=== PATIENT | male | born 1990 | race Caucasian/White ===

== ENCOUNTER 2016-04-02 17:17 | Emergency (ER) | payer SELFPAY ==
[2016-04-02 18:21] VITALS: BP 144/77; PULSE 83; RESP 18; TEMP 99.2
--- NOTE | 2016-04-02 20:23 | ED ---
General Adult HPI - General Chief complaint: Back Pain/Injury Stated complaint: Fall Time Seen by Provider: 04/02/16 19:32 Source: patient, RN notes reviewed Mode of arrival: ambulatory Limitations: no limitations - History of Present Illness Initial comments: This is a 25yo male who presents with neck and back pain after slipping and falling in his [place] at 8 AM this morning. Patient states he slipped on the ice. Patient denies hitting his head or loss of consciousness. Patient states he walked from his barn to his house after the fall, but has since been laying on the couch due to back pain. Patient admits to a throbbing pain in the middle of his back. Patient complains of some mild shortness of breath. Patient denies any loss of bowel or bladder function or loss of sensation to the saddle area. Patient admits to some mild radicular pain down bilateral extremities but denies any numbness or tingling. Patient denies any numbness or tingling or weakness in the bilateral upper extremities. Patient denies any headache, nausea, diplopia or blurred vision. Patient denies being on any medication. Patient denies any recent fever, chills, chest pain, abdominal pain , nausea/vomiting/diarrhea, hematuria, or visual changes, or any other complaints. - Related Data Home Medications Medication Instructions Recorded Confirmed Methocarbamol [Robaxin] 750 mg PO TID PRN 04/02/16 04/02/16 Naproxen 500 mg PO BID PRN 04/02/16 04/02/16 traMADol HCL [Ultram] 50 mg PO Q6HR PRN 04/02/16 04/02/16 Allergies Allergy/AdvReac Type Severity Reaction Status Date / Time No Known Allergies Allergy Verified 04/02/16 19:43 Review of Systems ROS Statement: Those systems with pertinent positive or pertinent negative responses have been documented in the HPI. ROS Other: All systems not noted in ROS Statement are negative. Past Medical History Past Medical History: Asthma History of Any Multi-Drug Resistant Organisms: None Reported Past Surgical History: No Surgical Hx Reported Past Psychological History: No Psychological Hx Reported Smoking Status: Former smoker Past Alcohol Use History: Occasional Past Drug Use History: None Reported General Exam - General Exam Comments Initial Comments: General: The patient is awake and alert, in no distress, and does not appear acutely ill. Eye: Pupils are equal, round and reactive to light, extra-ocular movements are intact. No nystagmus. There is normal conjunctiva bilaterally. No signs of icterus. Mouth and throat: There are moist mucous membranes and no oral lesions. Neck: There is cervical midline tenderness present. Patient is in a c-collar. Cardiovascular: There is a regular rate and rhythm. No murmur, rub or gallop is appreciated. Respiratory: Lungs are clear to auscultation, respirations are non-labored, breath sounds are equal. No wheezes, stridor, rales, or rhonchi. Gastrointestinal: Mild tenderness in the epigastric area that this correlates with the area of back pain. Soft, non-distended abdomen without masses or organomegaly noted. There is no rebound or guarding present. No CVA tenderness. Bowel sounds are unremarkable. Musculoskeletal: There is tenderness to palpation along the cervical midline, to the thoracic spine and to the lumbar paraspinal muscles on the right side. Normal ROM, Strength 5/5. Sensation intact. Radial and posterior tibial Pulses equal bilaterally 2+. Capillary refill is normal less than 2 seconds. Negative straight leg raise bilaterally. Neurological: A&O x 3. CN II-XII intact, There are no obvious motor or sensory deficits. Coordination appears grossly intact. Speech is normal. Skin: Skin is warm and dry and no rashes or lesions are noted. Psychiatric: Cooperative, appropriate mood & affect, normal judgment. Limitations: no limitations Course Vital Signs 04/02/16 18:19 Temperature 99.2 F Pulse Rate 83 Respiratory 18 Rate Blood Pressure 144/77 O2 Sat by Pulse 98 Oximetry Medical Decision Making - Medical Decision Making This is a 25 male who presents with back pain after a slip and fall this morning. On physical exam patient is neurologically intact. There is tenderness to palpation along the cervical midline, to the thoracic spine and to the lumbar paraspinal muscles on the right side. Normal ROM, Strength 5/5. Sensation intact. Radial and posterior tibial Pulses equal bilaterally 2+. Capillary refill is normal less than [address] of the cervical spine was done and reviewed showing:No evidence for fracture or subluxation of the cervical spine. Patient was then cleared of the cervical collar. X-rays of the thoracic and lumbar spine was done showing:X-ray thoracic spine: No acute fracture or dislocation is seen in the thoracic spine. X-ray lumbar spine: No acute fracture or dislocation is seen in the lumbar spine. Chest x-ray: No acute cardiopulmonary process. Reports read by Dr. Ruiz. Imaging was reviewed and discussed with patient. Patient was offered pain medication in the EC today but refused. Discussed warm compresses or ice to the areas of pain. Discussed [id number] Tylenol and Motrin/Aleve as needed for any pain. Discussed return parameters. Patient was able to stand and walk in the EC today. Discussed that patient should follow up with PCP in one to 2 days or return to the EC for any worsening symptoms or for any further concerns. Patient was receptive to this plan and patient will be discharged home. Disposition Clinical Impression: Mechanical back pain, Fall Disposition: HOME SELF-CARE Condition: Good Instructions: Back Pain (ED) Additional Instructions: Please ice or use heat to the areas. May use [id number] Tylenol or Motrin /Tylenol for any pain. Please use medication as discussed. Please follow-up with family doctor in the next 2 days of symptoms have not improved. Please return to emergency room if the symptoms increase or worsen or for any other concerns. Referrals: None,Stated [Primary Care Provider] - 1-2 days Time of Disposition: 22:11
--- NOTE | 2016-04-02 21:17 | CT ---
EXAMINATION TYPE: CT cervical spine wo con DATE OF EXAM: 04/02/2016 9:09 PM COMPARISON: NONE HISTORY: Neck pain post fall CT DLP: [address] of the cervical spine was performed with bone and soft tissue window settings submitted . Coronal and sagittal reconstruction is obtained. There is normal alignment and prevertebral soft tissues. I do not see evidence for fracture or subluxation. No significant degenerative changes are present. The lung apices are clear IMPRESSION: No evidence for fracture or subluxation of the cervical spine.
--- NOTE | 2016-04-02 21:47 | XR ---
EXAMINATION TYPE: XR chest 2V DATE OF EXAM: 04/02/2016 9:40 PM COMPARISON: NONE HISTORY: Chest pain TECHNIQUE: Frontal and lateral views of the chest are obtained. FINDINGS: There is no focal air space opacity. No evidence for pnuemothorax.No pleural effusion. The cardiac silhouette size is within normal limits. The osseous structures are grossly intact. IMPRESSION: 1. No acute cardiopulmonary process.
--- NOTE | 2016-04-02 21:48 | XR ---
EXAMINATION TYPE: XR lumbar spine 2 or 3V DATE OF EXAM: 04/02/2016 9:41 PM CLINICAL HISTORY: pain TECHNIQUE: Three views of the lumbar spine are submitted. COMPARISON: None. FINDINGS: There are 5 lumbar type vertebral bodies identified. The lumbar spine shows satisfactory alignment w ithout evidence of acute fracture or dislocation. Vertebral body heights are within normal limits. Disc spaces are within normal limits. The overlying soft tissue appears unremarkable. IMPRESSION: No acute fracture or dislocation is seen in the lumbar spine. ICD 10 NO FRACTURE, INITIAL EVALUATION
--- NOTE | 2016-04-02 21:49 | XR ---
EXAMINATION TYPE: XR thoracic spine complete DATE OF EXAM: 04/02/2016 9:41 PM CLINICAL HISTORY: pain TECHNIQUE: Frontal, lateral, and swimmer's view of thoracic spine are obtained. COMPARISON: None. FINDINGS: Thoracic spine show satisfactory alignment without evidence of acute fracture or dislocatio n. Vertebral body heights are preserved. Disc spaces are well preserved. Visualized ribs are unrem arkable. IMPRESSION: No acute fracture or dislocation is seen in the thoracic spine. ICD 10 NO FRACTURE, INIT IAL EVALUATION
== END 2016-04-02 22:33 | disposition home or self-care (01) ==
LOC: EC 17:17
DX: M54.9 Dorsalgia, unspecified (principal); Z87.891 Personal history of nicotine dependence; W00.0XXA Fall on same level due to ice and snow, initial encounter; Y92.71 Barn as the place of occurrence of the external cause; R06.02 Shortness of breath
CPT/HCPCS: 71020; 72072; 72100; 72125; 99284

== ENCOUNTER 2017-06-12 18:10 | Emergency (ER) | payer BC ==
[2017-06-12] MEDS ORDERED: MAG HYDROX/AL HYDROX/SIMETH 30 ML, HYOSCYAMINE ELIXIR 10 ML, CIMETIDINE HCL 300 MG, LID... PO STA ×4 (18:54)
[2017-06-12] MEDS ORDERED: SODIUM CHLORIDE 0.9% 1,000 ML IV STA (18:54)
[2017-06-12 19:30] LABS: Basophils % (A) 0 %; Eosinophils # (A) 0.4 k/uL (0-0.7); Eosinophils % (A) 7 %; HCT 43.5 % (39.0-53.0); HGB 15.5 gm/dL (13.0-17.5); Lymphocytes # (A) 1.2 k/uL (1.0-4.8); Lymphocytes % (A) 23 %; MCH 32.5 pg (25.0-35.0); MCHC 35.7 g/dL (31.0-37.0); MCV 91.1 fL (80.0-100.0); Mean Platelet Volume 6.9; Monocytes # (A) 0.3 k/uL (0-1.0); Monocytes % (A) 5 %; Neutrophils # (A) 3.3 k/uL (1.3-7.7); Neutrophils % (A) 62 %; Platelet Count 232 k/uL (150-450); RBC 4.78 m/uL (4.30-5.90); RDW 12.7 % (11.5-15.5); WBC 5.3 k/uL (3.8-10.6)
--- NOTE | 2017-06-12 19:39 | ED ---
Abdominal Pain HPI - General Chief Complaint: Abdominal Pain Stated Complaint: ABDOMINAL PAIN, NAUSEA Time Seen by Provider: 06/12/17 18:45 Source: patient, RN notes reviewed Mode of arrival: ambulatory Limitations: no limitations - History of Present Illness Initial Comments: This is a 26-year-old male who presents to the emergency department with chief complaint of abdominal pain and diarrhea. Patient states that Thursday he returned from a trip to [place]. He states that he developed left-sided abdominal pain and has had watery diarrhea ever since. He states that he has not had a normal bowel movement since Thursday. He states that a couple hours after eating he developed left-sided abdominal pain and then approximately 15 minutes later he has watery diarrhea. He does admit to some nausea but denies vomiting. He states that he does have a coworker with similar symptoms. Denies fevers or chills. Denies urinary symptoms such as dysuria, hematuria or increased frequency. - Related Data Home Medications Medication Instructions Recorded Confirmed Elviteg/Cob/Emtri/Tenof Alafen 1 tab PO HS 06/12/17 06/12/17 [Genvoya Tablet] Sulfamethox-Tmp 800-160Mg [Bactrim 1 tab PO HS 06/12/17 06/12/17 DS 800-160 mg] Allergies Allergy/AdvReac Type Severity Reaction Status Date / Time No Known Allergies Allergy Verified 06/12/17 18:49 Review of Systems ROS Statement: Those systems with pertinent positive or pertinent negative responses have been documented in the HPI. ROS Other: All systems not noted in ROS Statement are negative. Past Medical History Past Medical History: Asthma History of Any Multi-Drug Resistant Organisms: None Reported Past Surgical History: No Surgical Hx Reported Past Psychological History: No Psychological Hx Reported Smoking Status: Former smoker Past Alcohol Use History: Occasional Past Drug Use History: None Reported General Exam - General Exam Comments Initial Comments: General: Awake and alert, well-developed; in no apparent distress. HEENT: Head atraumatic, normocephalic. Pupils are equal, round and reactive to light. Extraocular movements intact. Oropharynx moist without erythema or exudate. Neck: Supple. Normal ROM. Cardiovascular: Regular rate and rhythm. No murmurs, rubs or gallops. Chest symmetrical. Respiratory: Lungs clear to auscultation bilaterally. No wheezes, rales or rhonchi. Normal respiratory effort with no use of accessory muscles. Abdomen: Soft, non-distended. Tenderness on palpation of epigastric region and left upper quadrant. No rigidity, rebound or guarding. Normal bowel sounds in all 4 quadrants. Musculoskeletal: Normal ROM, no tenderness bilateral upper and lower extremities. Ambulating normally. Skin: [place], warm and dry without rashes or lesions. Neurological: Alert and oriented x3. CN II-XII grossly intact. Speech is fluent and answers are appropriate. No focal neuro deficits. Psychiatric: Normal mood and affect. No overt signs of depression or anxiety noted. Limitations: no limitations Course Vital Signs 06/12/17 18:16 Temperature 97.2 F L Pulse Rate 71 Respiratory 18 Rate Blood Pressure 136/76 O2 Sat by Pulse 98 Oximetry Medical Decision Making - Medical Decision Making This is a 26-year-old male who presents to the emergency department with chief complaint of abdominal pain and diarrhea. Patient has mild tenderness on palpation of the epigastric region. He complains of watery diarrhea after eating meals since Thursday. Denies any fevers or chills. Patient's vital signs are stable and he is afebrile. CBC, CMP and UA are unremarkable. X-ray KUB reveals a nonacute abdomen. Patient was given a GI cocktail and states he feels a 40-50% improvement in his symptoms. Patient is in no acute distress and will be discharged home. Likely suffering from gastroenteritis. Return parameters were discussed. Patient is in agreement plan and voices understanding. All questions were answered. - Lab Data Result diagrams: 06/12/17 19:19 06/12/17 19:19 Lab Results 06/12/17 06/12/17 Range/Units 19:19 19:19 WBC 5.3 (3.8-10.6) k/uL RBC 4.78 (4.30-5.90) m/uL Hgb 15.5 (13.0-17.5) gm/dL Hct 43.5 (39.0-53.0) % MCV 91.1 (80.0-100.0) fL MCH 32.5 (25.0-35.0) pg MCHC 35.7 (31.0-37.0) g/dL RDW 12.7 (11.5-15.5) % Plt Count 232 (150-450) k/uL Neutrophils % 62 % Lymphocytes % 23 % Monocytes % 5 % Eosinophils % 7 % Basophils % 0 % Neutrophils # 3.3 (1.3-7.7) k/uL Lymphocytes # 1.2 (1.0-4.8) k/uL Monocytes # 0.3 (0-1.0) k/uL Eosinophils # 0.4 (0-0.7) k/uL Basophils # 0.0 (0-0.2) k/uL Sodium 143 (137-145) mmol/L Potassium 3.7 (3.5-5.1) mmol/L Chloride 105 (98-107) mmol/L Carbon Dioxide 21 L (22-30) mmol/L Anion Gap 17 mmol/L BUN 13 (9-20) mg/dL Creatinine 0.90 (0.66-1.25) mg/dL Est GFR (CKD-EPI)AfAm >90 (>60 ml/min/1.73 sqM) Est GFR (CKD-EPI)NonAf >90 (>60 ml/min/1.73 sqM) Glucose 103 H (74-99) mg/dL Calcium 9.3 (8.4-10.2) mg/dL Total Bilirubin 0.3 (0.2-1.3) mg/dL AST 22 (17-59) U/L ALT 24 (21-72) U/L Alkaline Phosphatase 110 (38-126) U/L Total Protein 7.3 (6.3-8.2) g/dL Albumin 4.5 (3.5-5.0) g/dL Amylase 51 (30-110) U/L Lipase 59 (23-300) U/L - Radiology Data Radiology results: report reviewed X-ray KUB findings: There is no sign of intestinal obstruction or pneumoperitoneum. Fecal pattern is normal. There are no pathologic calcifications. Lung bases are clear. Bony structures appear normal. Impression: Nonacute abdomen. Disposition Clinical Impression: Gastroenteritis Disposition: HOME SELF-CARE Condition: Good Instructions: Gastroenteritis (ED), Acute Diarrhea (ED) Additional Instructions: Please follow up with primary care provider within 1-2 days. Return to emergency department if symptoms should worsen or any concerns arise. Referrals: Nonstaff,Physician [Primary Care Provider] - 1-2 days Time of Disposition: 21:01
--- NOTE | 2017-06-12 19:43 | XR ---
EXAMINATION TYPE: XR KUB DATE OF EXAM: 06/12/2017 COMPARISON: NONE HISTORY: Abdominal pain TECHNIQUE: 2 views FINDINGS: There is no sign of intestinal obstruction or pneumoperitoneum. Fecal pattern is normal. Th ere are no pathologic calcifications. Lung bases are clear. Bony structures appear normal. IMPRESSION: Nonacute abdomen.
[2017-06-12 19:52] LABS: ALT 24 U/L (21-72); AST 22 U/L (17-59); Albumin 4.5 g/dL (3.5-5.0); Alkaline Phosphatase 110 U/L (38-126); Amylase 51 U/L (30-110); Anion Gap 17 mmol/L; Blood Urea Nitrogen 13 mg/dL (9-20); Calcium 9.3 mg/dL (8.4-10.2); Carbon Dioxide 21 mmol/L (22-30); Chloride 105 mmol/L (98-107); Glucose 103 mg/dL (74-99); Lipase 59 U/L (23-300); Potassium 3.7 mmol/L (3.5-5.1); Sodium 143 mmol/L (137-145); Total Bilirubin 0.3 mg/dL (0.2-1.3); Total Protein 7.3 g/dL (6.3-8.2)
[2017-06-12 20:32] LABS: Appearance,Urine Clear (Clear); Bilirubin,Urine Negative (Negative); Blood,Urine Negative (Negative); Color,Urine Yellow; Glucose,Urine (UA) Negative (Negative); Ketones,Urine Trace (Negative); Leukocyte Esterase,Urine Negative (Negative); Nitrite,Urine Negative (Negative); PH, Urine 5.5 (5.0-8.0); Protein,Urine Negative (Negative); Specific Gravity,Urine 1.017 (1.001-1.035); Urobilinogen,Urine <2.0 mg/dL (<2.0)
[2017-06-12 21:10] VITALS: BP 125/68; PULSE 52; RESP 18; TEMP 98.2
== END 2017-06-12 21:09 | disposition home or self-care (01) ==
LOC: EC 18:10
DX: K52.9 Noninfective gastroenteritis and colitis, unspecified (principal); Z87.891 Personal history of nicotine dependence; Z79.899 Other long term (current) drug therapy
CPT/HCPCS: 36415; 74018; 80053; 81003; 82150; 83690; 85025; 87086; 96360; 99284

== ENCOUNTER 2017-06-25 11:11 | Emergency (ER) | payer BC ==
[2017-06-25 11:20] VITALS: BP 127/75; PULSE 74; RESP 20; TEMP 98.4
--- NOTE | 2017-06-25 11:53 | ED ---
General Adult HPI - General Chief complaint: ENT Stated complaint: Throat pain Time Seen by Provider: 06/25/17 11:38 Source: patient, RN notes reviewed Mode of arrival: ambulatory Limitations: no limitations - History of Present Illness Initial comments: Patient is told 6-year-old male presenting to the emergency room today with a chief complaint of sore throat and some cough congestion times one day. He does admit to sputum production as been yellow in color. Patient states that there were some sick contacts at home of people Living with. Patient states his symptoms started yesterday. Patient states it hurts when he swallows. Denies any difficulty swallowing. Patient denies any other complaints or symptoms. Patient denies any recent fever, chills, shortness of breath, chest pain, back pain, abdominal pain, nausea or vomiting, numbness or tingling, dysuria or hematuria, constipation or diarrhea, headaches or visual changes, or any other complaints. - Related Data Home Medications Medication Instructions Recorded Confirmed Elviteg/Cob/Emtri/Tenof Alafen 1 tab PO HS 06/12/17 06/25/17 [Genvoya Tablet] Sulfamethox-Tmp 800-160Mg [Bactrim 1 tab PO HS 06/12/17 06/25/17 DS 800-160 mg] Previous Rx's Medication Instructions Recorded methylPREDNISolone Dose Pack 4 mg PO DIRECTED #21 package 06/25/17 [Medrol Dose Pack] Allergies Allergy/AdvReac Type Severity Reaction Status Date / Time No Known Allergies Allergy Verified 06/25/17 12:23 Review of Systems ROS Statement: Those systems with pertinent positive or pertinent negative responses have been documented in the HPI. ROS Other: All systems not noted in ROS Statement are negative. Past Medical History Past Medical History: Asthma Additional Past Medical History / Comment(s): HIV History of Any Multi-Drug Resistant Organisms: None Reported Past Surgical History: No Surgical Hx Reported Past Psychological History: No Psychological Hx Reported Smoking Status: Former smoker Past Alcohol Use History: Occasional Past Drug Use History: None Reported General Exam - General Exam Comments Initial Comments: General: The patient is awake and alert, in no distress, and does not appear acutely ill. Eye: Pupils are equal, round and reactive to light, extra-ocular movements are intact. No nystagmus. There is normal conjunctiva bilaterally. No signs of icterus. Ears, nose, mouth and throat: There are moist mucous membranes and no oral lesions. Neck: The neck is supple, there is no tenderness or JVD. Cardiovascular: There is a regular rate and rhythm. No murmur, rub or gallop is appreciated. Respiratory: Lungs are clear to auscultation, respirations are non-labored, breath sounds are equal. No wheezes, stridor, rales, or rhonchi. Musculoskeletal: Normal ROM, no tenderness. Strength 5/5. Sensation intact. Pulses equal bilaterally 2+. Neurological: A&O x 3. CN II-XII intact, There are no obvious motor or sensory deficits. Coordination appears grossly intact. Speech is normal. Skin: Skin is warm and dry and no rashes or lesions are noted. Psychiatric: Cooperative, appropriate mood & affect, normal judgment. Limitations: no limitations Course Vital Signs 06/25/17 11:18 Temperature 98.4 F Pulse Rate 74 Respiratory 20 Rate Blood Pressure 127/75 O2 Sat by Pulse 99 Oximetry Medical Decision Making - Medical Decision Making Patient's strep test negative. The emergency room. Patient advised mostly viral illness. Patient will be given Medrol Dosepak for his symptoms. Advised returning or following up with family physician - Lab Data Lab Results 06/25/17 Range/Units 11:54 Group A Strep Rapid Negative (Negative) Disposition Clinical Impression: Acute pharyngitis Disposition: HOME SELF-CARE Condition: Good Instructions: Pharyngitis (ED) Additional Instructions: Please use medication as discussed. Please follow-up with family doctor in the next 2 days of symptoms have not improved. Please return to emergency room if the symptoms increase or worsen or for any other concerns. Prescriptions: methylPREDNISolone Dose Pack [Medrol Dose Pack] 4 mg PO DIRECTED #21 package Referrals: None,Stated [Primary Care Provider] - 1-2 days Time of Disposition: 12:29
== END 2017-06-25 12:44 | disposition home or self-care (01) ==
LOC: EC 11:11
DX: Z79.899 Other long term (current) drug therapy (principal); Z21 Asymptomatic human immunodeficiency virus [HIV] infection status; Z87.891 Personal history of nicotine dependence; J02.9 Acute pharyngitis, unspecified
CPT/HCPCS: 87081; 87430; 99283

== ENCOUNTER 2017-11-30 19:22 | Emergency (ER) | payer BC, OTHER ==
[2017-11-30 19:31] VITALS: RESP 20
[2017-11-30] MEDS ORDERED: methylPREDNISolone SOD SUCCI 125 MG/2 ML VIAL IM ONE (20:14)
[2017-11-30] MEDS ORDERED: IPRATROPIUM-ALBUTEROL 3 ML NEB INHALATION STA (20:14)
--- NOTE | 2017-11-30 20:17 | ED ---
General Adult HPI - General Source: patient, RN notes reviewed Mode of arrival: ambulatory Limitations: no limitations <Jone Perdue P - Last Filed: 11/30/17 22:08> <Phoebe Bone P - Last Filed: 12/01/17 22:48> - General Chief complaint: Upper Respiratory Infection Stated complaint: poss bronchitis Time Seen by Provider: 11/30/17 20:07 - History of Present Illness Initial comments: 26-year-old male presents to the emergency department for chief complaint of productive cough 4 days. Patient states he is coughing up yellow mucous. Patient admits to mild shortness of breath when coughing. He states this is worse when he gets into a "coughing fit. Patient denies night sweats, fevers, or chills. Patient denies any difficulty breathing. Patient admits to a history of childhood asthma but denies any symptoms of asthma since he was young. Patient states he used to smoke but has quit. Patient also complains of nasal congestion. He denies a sore throat. Patient does have a history of HIV which he is compliant on Genvoya for. He states CD4 counts have been normal. Patient has no other complaints at this time including chest pain, abdominal pain, nausea or vomiting, headache, or visual changes. (Jone Perdue) - Related Data Home Medications Medication Instructions Recorded Confirmed Elviteg/Cob/Emtri/Tenof Alafen 1 tab PO HS 06/12/17 11/30/17 [Genvoya Tablet] Previous Rx's Medication Instructions Recorded Albuterol Inhaler [Ventolin Hfa 1 - 2 puff INHALATION Q6HR PRN #1 11/30/17 Inhaler] inhaler Azithromycin [Zithromax Z-pack] 250 mg PO DIRECTED #6 tab 11/30/17 Benzonatate [Tessalon Perles] 200 mg PO Q8H PRN #15 capsule 11/30/17 predniSONE 50 mg PO DAILY #5 tablet 11/30/17 Allergies Allergy/AdvReac Type Severity Reaction Status Date / Time No Known Allergies Allergy Verified 11/30/17 19:30 Review of Systems ROS Other: All systems not noted in ROS Statement are negative. <Jone Perdue - Last Filed: 11/30/17 22:08> ROS Other: All systems not noted in ROS Statement are negative. <Phoebe Bone P - Last Filed: 12/01/17 22:48> ROS Statement: Those systems with pertinent positive or pertinent negative responses have been documented in the HPI. Past Medical History Past Medical History: Asthma Additional Past Medical History / Comment(s): HIV History of Any Multi-Drug Resistant Organisms: None Reported Past Surgical History: No Surgical Hx Reported Past Psychological History: No Psychological Hx Reported Smoking Status: Former smoker Past Alcohol Use History: Occasional Past Drug Use History: None Reported <Jone Perdue P - Last Filed: 11/30/17 22:08> General Exam Limitations: no limitations General appearance: alert, in no apparent distress (Patient is well-appearing sitting up in bed. No difficulty breathing or shortness of breath noted.) Head exam: Present: atraumatic, normocephalic, normal inspection Eye exam: Present: normal appearance, PERRL, EOMI. Absent: scleral icterus, conjunctival injection, periorbital swelling ENT exam: Present: normal exam, normal oropharynx, mucous membranes moist, normal external ear exam Neck exam: Present: normal inspection, full ROM. Absent: tenderness, meningismus, lymphadenopathy Respiratory exam: Present: normal lung sounds bilaterally, wheezes (Wheezing noted in all lung kearns). Absent: respiratory distress, rales, rhonchi, stridor Cardiovascular Exam: Present: regular rate, normal rhythm, normal heart sounds. Absent: systolic murmur, diastolic murmur, rubs, gallop, clicks Neurological exam: Present: alert, oriented X3, CN II-XII intact Psychiatric exam: Present: normal affect, normal mood Skin exam: Present: warm, dry, intact, normal color. Absent: rash <Jone Perdue P - Last Filed: 11/30/17 22:08> Vital Signs 11/30/17 11/30/17 11/30/17 19:27 20:33 20:45 Temperature 98.5 F Pulse Rate 89 88 92 Respiratory 20 Rate Blood Pressure 131/95 O2 Sat by Pulse 97 Oximetry 11/30/17 22:40 Temperature 99.2 F Pulse Rate 62 Respiratory 20 Rate Blood Pressure 135/60 O2 Sat by Pulse 98 Oximetry Medical Decision Making <Jone Perdue P - Last Filed: 11/30/17 22:08> <Phoebe Bone - Last Filed: 12/01/17 22:48> - Medical Decision Making 26-year-old male presents to the emergency department for a chief complaint of cough 4 days. Patient states cough is productive with yellow mucus. He admits he has mild shortness of breath when he has a coughing fit. Denies fevers or chills at home. Patient had a history of childhood asthma but no longer has symptoms of asthma. Patient is a former smoker. Patient is HIV positive complaint on medications with normal CD4 counts. Patient is afebrile in the emergency department with a temperature of 98.5 and a pulse of 89. Pulse ox 97% on room air. On exam wheezing it is noted in all 4 lung kearns. Denies sore throat. Patient also has nasal congestion. Patient was given a DuoNeb which helps with his symptoms. X-ray shows no acute process. Lungs are clear. Patient was given Solu-Medrol here in the emergency department. He will be given 5 days of prednisone, azithromycin, albuterol, and Tessalon Perles. He will follow up with primary care in 1-2 days. Patient aware to return if he has any worsening symptoms such as shortness of breath, recent cough, fever or chills. Strong return precautions were discussed with him multiple times. Discussed case with Dr. Bone. (Jone Perdue) I was available for consultation in the emergency department. The history and physical exam were done by the midlevel provider. I was consulted for this patient's care. I reviewed the case with the midlevel provider and based on their presentation of the patient, I agree with the assessment, medical decision making and plan of care as documented. (Phoebe Bone) Disposition Is patient prescribed a controlled substance at d/c from ED?: No Time of Disposition: 22:12 <Jone Perdue - Last Filed: 11/30/17 22:08> <Phoebe Bone - Last Filed: 12/01/17 22:48> Clinical Impression: Cough Disposition: HOME SELF-CARE Condition: Good Instructions: Upper Respiratory Infection (ED) Additional Instructions: Please take medications as directed. Please follow-up with primary care in 1-2 days. Please return to the emergency department if you have any worsening symptoms, worsening cough, increased shortness of breath, or fevers. Prescriptions: Albuterol Inhaler [Ventolin Hfa Inhaler] 1 - 2 puff INHALATION Q6HR PRN #1 inhaler PRN Reason: Shortness Of Breath Azithromycin [Zithromax Z-pack] 250 mg PO DIRECTED #6 tab Benzonatate [Tessalon Perles] 200 mg PO Q8H PRN #15 capsule PRN Reason: Cough predniSONE 50 mg PO DAILY #5 tablet Referrals: Nathaniel Arvizu MD [STAFF PHYSICIAN] - 1-2 days
--- NOTE | 2017-11-30 21:54 | XR ---
EXAMINATION: XR chest 2V DATE AND TIME: 11/30/2017 9:00 PM CLINICAL INDICATION: Pain TECHNIQUE: PA and lateral COMPARISON: 05/27/2017 FINDINGS: The lungs are clear. The pleural spaces are negative. The cardiac silhouette is not enlarged. The remainder of the mediastinal silhouette is unremarkable. The skeletal structures and soft tissues are negative for acute findings. IMPRESSION: NO ACUTE PROCESS.
[2017-11-30 22:48] VITALS: BP 135/60; PULSE 62; TEMP 99.2
== END 2017-11-30 22:40 | disposition home or self-care (01) ==
LOC: EC 19:22
DX: R05 Cough (principal); R06.02 Shortness of breath; R06.2 Wheezing; R09.81 Nasal congestion; Z87.891 Personal history of nicotine dependence; Z79.899 Other long term (current) drug therapy
CPT/HCPCS: 94640; 71046; 99283; 96372; J2930